=== PATIENT | female | born 1980 | race Caucasian/White ===

== ENCOUNTER 2023-11-29 16:31 | Emergency (ER) | payer OTHER ==
[~2023-11-29] VITALS: Ht 170.2 cm; Wt 104.5 kg
[2023-11-29 16:33] VITALS: BP 157/96; PULSE 81; RESP 16; TEMP 97.4; O2SAT 93
[2023-11-29] MEDS ORDERED: RALT400T PO (17:12)
[2023-11-29] MEDS ORDERED: EMTR1TAB PO (17:12)
== END 2023-11-29 18:30 | disposition home or self-care (01) ==
LOC: ER 16:32
DX: Z77.21 Contact with and (suspected) exposure to potentially hazardous body fluids (principal)
CPT/HCPCS: 99283